=== PATIENT | male | born 1970 | race Caucasian/White ===

== ENCOUNTER 2021-06-11 17:07 | Emergency (ER) | payer OTHER ==
[2021-06-11 19:08] LABS: BASOPHIL 0.7 % (0-2); EOSINOPHIL 3.8 % (0-5); HCT 44.9 % (42.0-52.0); HGB 14.3 g/dl (13.2-18.0); LYMPHOCYTE 13.5 % (15-48); MCH 27.9 pg (25.0-31.0); MCHC 31.8 g/dL (32.0-36.0); MCV 87.7 fL (78.0-100.0); MONOCYTE 8.7 % (0-12); MPV 9.5 fL (6.0-9.5); NRBC 0; PLT 250 K/uL (150-400); RBC 5.12 M/uL (4.70-6.00); RDW 14.9 % (11.5-14.0); WBC 10.9 K/uL (4.0-10.5)
[2021-06-11 19:23] LABS: ALBUMIN 3.2 g/dL (3.4-5.0); BILIRUBIN - TOTAL 0.7 mg/dL (0.2-1.0); BUN/CREAT RATIO (CALC) 11.1 RATIO; CREATININE 0.99 mg/dL (0.67-1.17); GLOBULIN (CALCULATION) 4.2 g/dL; POTASSIUM 3.8 mmol/L (3.5-5.1); TOTAL PROTEIN 7.4 g/dL (6.4-8.2)
[2021-06-11 19:41] LABS: CORONAVIRUS 2019 SARS-COV-2 NEGATIVE (NEGATIVE); INFLUENZA A NAA NEGATIVE (NEGATIVE)
[2021-06-11] MEDS ORDERED: ZPAK PO (20:59)
== END 2021-06-11 21:20 | disposition home or self-care (01) ==
LOC: FER 17:07
PROVIDERS: Nurse Practitioner Family
DX: J32.9 Chronic sinusitis, unspecified (principal); I10 Essential (primary) hypertension; J45.909 Unspecified asthma, uncomplicated; Z88.0 Allergy status to penicillin; Z88.1 Allergy status to other antibiotic agents; Z88.6 Allergy status to analgesic agent; Z20.822 Contact with and (suspected) exposure to COVID-19; Z79.82 Long term (current) use of aspirin; Z79.899 Other long term (current) drug therapy
CPT/HCPCS: 36415; 70450; 80053; 84145; 85025; 87040; J1100; J1200; J1885; J2405; J7030; U0002